=== PATIENT | male | born 1960 | race African-American/Black ===

== ENCOUNTER 2020-05-23 13:44 | Emergency (ER) | payer BC, OTHER ==
[2020-05-23 13:51] VITALS: BP 180/94
--- NOTE | 2020-05-23 13:57 | ER Document Report ---
ED Medical Screen (RME) - General Chief Complaint: Numbness Stated Complaint: RIGHT SIDED NUMBNESS Time Seen by Provider: 05/23/20 13:50 Mode of Arrival: Ambulatory Information source: Patient Notes: 59-year-old male presented to ED for a numbness in the right shoulder and arm. He states he has no loss of memory no change in orientation and mentation. He has no facial droop. He has no palmar drift. He has full range of motion to all arms and legs. He states he has never had anything like this before. He states the feeling is starting to come back to his arm and shoulder. He has fu ll front end architect. I have spoken with who stated he would need a full stroke protocol work-up and this has been ordered. He has been sent to CT. I have greeted and performed a rapid initial assessment of this patient. A comprehensive ED assessment and evaluation of the patient, analysis of test results and completion of medical decision making process will be conducted by an additional ED providers. TRAVEL OUTSIDE OF THE [place] IN LAST 30 DAYS: No - Related Data Allergies/Adverse Reactions: No Known Allergies Allergy (Verified 05/16/15 17:28) Past Medical History - Past Medical History Cardiac Medical History: Reports: Hx Hypercholesterolemia, Hx Hypertension Endocrine Medical History: Reports: Hx Diabetes Mellitus Type 1 Past Surgical History: Reports: Hx Orthopedic Surgery - left shoulder - Immunizations Hx Diphtheria, Pertussis, Tetanus Vaccination: Yes - 2010 Physical Exam - Vital signs Vitals: Temp Pulse Resp BP Pulse Ox 98.5 F 92 20 180/94 H 98 05/23/20 13:51 05/23/20 13:51 05/23/20 13:51 05/23/20 13:51 05/23/20 13:51 Course - Vital Signs Vital signs: Temp Pulse Resp BP Pulse Ox 98.5 F 92 20 180/94 H 98 05/23/20 13:51 05/23/20 13:51 05/23/20 13:51 05/23/20 13:51 05/23/20 13:51
--- NOTE | 2020-05-23 14:08 | ER Document Report ---
ED General - General Chief Complaint: Numbness Stated Complaint: RIGHT SIDED NUMBNESS Time Seen by Provider: 05/23/20 13:50 Primary Care Provider: SANDRA PALOMINO MD [Primary Care Provider] - Follow up as needed Mode of Arrival: Ambulatory Notes: 59-year-old male presents with right arm symptoms. He is a type II diabetic well-controlled actually had a primary care appointment 2 days ago and was told everything is fine in terms of his blood pressure cholesterol etc. Today at work he had an episode of right arm tingling and swelling he looked at his hand and it looked puffy and then he developed tingling that went up his arm to his shoulder. He then had some involuntary hand cramping on the right. Lasted 2 hours and is now gone. He did not have any weakness he had no face or arm symptoms language issues or any other symptoms. Yesterday before lunch she had a brief episode of feeling foggy and with visual changes did not check his blood sugar and that went away spontaneously and has not recurred since. He was seen at triage the triage provider asked me if she is to order a head CT and I told her yes. Apparently he was nearly activated as a code stroke, however on m y assessment this is not needed. TRAVEL OUTSIDE OF THE [place] IN LAST 30 DAYS: No - Related Data Allergies/Adverse Reactions: No Known Allergies Allergy (Verified 05/16/15 17:28) Past Medical History - General Information source: Patient - Social History Smoking Status: Never Smoker Family History: None - Past Medical History Cardiac Medical History: Reports: Hx Hypercholesterolemia, Hx Hypertension Endocrine Medical History: Reports: Hx Diabetes Mellitus Type 1 Past Surgical History: Reports: Hx Orthopedic Surgery - left shoulder - Immunizations Hx Diphtheria, Pertussis, Tetanus Vaccination: Yes - 2010 Review of Systems - Review of Systems Notes: REVIEW OF SYSTEMS GEN: Denies fever, chills, weight loss ENT: Denies sore throat, nasal discharge, ear pain EYES: Denies blurry vision, eye pain, discharge CV: Denies chest pain, palpitations, edema RESP: Denies cough, shortness of breath, wheezing GI: Denies abdominal pain, nausea, vomiting, diarrhea MSK: Denies joint pain/swelling, edema, SKIN: Denies rash, skin lesions LYMPH: Denies swollen glands/lymph nodes NEURO: Voluntary right hand contraction and numbness now resolved s PSYCH: Denies depression, suicidal or homicidal ideation PHYSICAL EXAMINATION General: No acute distress, well-nourished Head: Atraumatic, normocephalic ENT: Mouth normal, oropharynx moist, no exudates or tonsillar enlargement Eyes: Conjunctiva normal, pupils equal, lids normal Neck: No JVD, supple, no guarding CVS: Normal rate, regular rhythm, no murmurs Resp: No resp distress, equal and normal breath sounds bilaterally GI: Nondistended, soft, no tenderness to palpation, no rebound or guarding Ext: No deformities, no edema, normal range of motion in upper and lower ext Back: No CVA or midline TTP Skin: No rash, warm Lymphatic: No lymphadeopathy noted Neuro: Awake, alert. Face symmetric. GCS 15. Annual nerves II through XII are intact. 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 Normal sensation throughout both upper and lower extremity as well as the trunk. Normal reflexes. Speech is fluent, keenly awake and alert NIH stroke score 0. Physical Exam - Vital signs Vitals: Temp Pulse Resp BP Pulse Ox 98.5 F 92 20 180/94 H 98 05/23/20 13:51 05/23/20 13:51 05/23/20 13:51 05/23/20 13:51 05/23/20 13:51 Course - Re-evaluation Re-evalutation: 05/23/20 14:07 Resolved right upper extremity cramping and tingling, could be a result of electrolytes blood sugar radiculopathy but is unlikely to reflect stroke or TIA Neuro exam normal now Head CT was already done at triage and looks clean Seizure is also remote possibility but with no locus on CT this is less likely. Will check basic labs and do a ABCD 2 score in terms of TIA 05/23/20 14:45 ABCD 2 3 points Per the validation study, 0-3 points: Low Risk 2-Day Stroke Risk: 1.0% 7-Day Stroke Risk: 1.2% 05/23/20 16:27 Not think this was a true TIA and even if it is I spoke with the patient at length and he is recently had a normal carotid ultrasound saw his primary yesterday and I think he is at overall low risk for stroke Discharge home start/resume baby aspirin I have discussed with the patient there likely diagnosis, aftercare plan, follow-up plans and my usual and customary return precautions. They verbalized understanding of this. - Vital Signs Vital signs: Temp Pulse Resp BP Pulse Ox 98.5 F 92 20 180/94 H 98 05/23/20 13:51 05/23/20 14:37 05/23/20 14:37 05/23/20 14:37 05/23/20 14:42 - Laboratory Result Diagrams: 05/23/20 14:15 05/23/20 14:15 Laboratory results interpreted by me: 05/23/20 05/23/20 05/23/20 14:15 14:15 14:22 Seg Neutrophils % 40.9 L Carbon Dioxide 32 H Glucose 119 H POC Glucose 128 H - Diagnostic Test Radiology reviewed: Image reviewed, Reports reviewed - EKG Interpretation by Me EKG shows normal: Sinus rhythm Rate: Normal Rhythm: NSR - And was elevation no depression no T wave changes Discharge - Discharge Clinical Impression: Hand cramps Hypertension Qualifiers: Hypertension type: unspecified Qualified Code(s): I10 - Essential (primary) hypertension Condition: Stable Disposition: HOME, SELF-CARE Instructions: Transient Ischemic Attack ([facility]) Additional Instructions: As we discussed I do not think you had a mini stroke but I did provide instructions as if you did, to let you know when to return to the emergency ro om. Referrals: SANDRA PALOMINO MD [Primary Care Provider] - Follow up as needed
--- NOTE | 2020-05-23 14:12 | RADIOLOGY REPORT (SQ) ---
EXAM DESCRIPTION: CT HEAD WITHOUT IMAGES COMPLETED DATE/TIME: 05/23/2020 2:02 pm REASON FOR STUDY: Stroke alert COMPARISON: None. TECHNIQUE: Axial images acquired through the brain without intravenous contrast. Images reviewed wi th bone, brain and subdural windows. Additional sagittal and coronal reconstructions were generated. Images stored on PACS. All CT scanners at this facility use dose modulation, iterative reconstruction, and/or weight based d osing when appropriate to reduce radiation dose to as low as reasonably achievable (ALARA). [facility]: Dose Right [facility]: CareDose [facility]: Dose Right [facility]: Teradose 4D [facility]: Smart ShapeUp RADIATION DOSE: CT Rad equipment meets quality standard of care and radiation dose reduction techniq ues were employed. CTDIvol: 53.2 mGy. DLP: 1124 mGy-cm. mGy. LIMITATIONS: None. FINDINGS: VENTRICLES: Normal size and contour. CEREBRUM: No masses. No hemorrhage. No midline shift. No evidence for acute infarction. Normal gra y/white matter differentiation. No areas of low density in the white matter. CEREBELLUM: No masses. No hemorrhage. No alteration of density. No evidence for acute infarction. EXTRAAXIAL SPACES: No fluid collections. No masses. ORBITS AND GLOBE: No intra- or extraconal masses. Normal contour of globe without masses. CALVARIUM: No fracture. PARANASAL SINUSES: No fluid or mucosal thickening. SOFT TISSUES: No mass or hematoma. OTHER: No other significant finding. IMPRESSION: NORMAL BRAIN CT WITHOUT CONTRAST. EVIDENCE OF ACUTE STROKE: NO. COMMENT: Quality ID # [id number]: Final reports with documentation of one or more dose reduction techniques (e.g., Automated exposure control, adjustment of the mA and/or kV according to patient size, use of iterative reconstruction technique) TECHNICAL DOCUMENTATION: JOB ID: [id number] 2010 [employer]- All Rights Reserved Reading location - IP/workstation name: [email or web address]
--- NOTE | 2020-05-23 14:20 | RADIOLOGY REPORT (SQ) ---
EXAM DESCRIPTION: CHEST SINGLE VIEW IMAGES COMPLETED DATE/TIME: 05/23/2020 2:03 pm REASON FOR STUDY: Stroke alert COMPARISON: None. EXAM PARAMETERS: NUMBER OF VIEWS: One view. TECHNIQUE: Single frontal radiographic view of the chest acquired. RADIATION DOSE: NA LIMITATIONS: None. FINDINGS: LUNGS AND PLEURA: No opacities, masses or pneumothorax. No pleural effusion. MEDIASTINUM AND HILAR STRUCTURES: No masses. Contour normal. HEART AND VASCULAR STRUCTURES: Heart normal in size. Normal vasculature. BONES: No acute findings. HARDWARE: None in the chest. OTHER: No other significant finding. IMPRESSION: NO ACUTE RADIOGRAPHIC FINDING IN THE CHEST. TECHNICAL DOCUMENTATION: JOB ID: [id number] 2010 [employer]- All Rights Reserved Reading location - IP/workstation name: [email or web address]
[2020-05-23 14:30] LABS: ABSOLUTE BASOPHILS # (AUTO) 0.1 10^3/uL (0.0-0.2); ABSOLUTE EOSINOPHILS # (AUTO) 0.3 10^3/uL (0.0-0.6); ABSOLUTE MONOCYTES (AUTO) 0.9 10^3/uL (0.1-1.4); ABSOLUTE NEUT (AUTO) 2.9 10^3/uL (1.7-8.2); BASOPHILS % (AUTO) 0.8 % (0-2); EOSINOPHILS % (AUTO) 4.5 % (0-6); HEMATOCRIT 40.9 % (37.9-51.0); LYMPHOCYTES % (AUTO) 41.7 % (13-45); MEAN CORPUSCULAR HGB CONC 34.1 g/dL (32.0-36.0); MEAN CORPUSCULAR VOLUME 94 fl (80-97); MONOCYTES % (AUTO) 12.1 % (3-13); PLATELET COUNT 187 10^3/uL (150-450); RED BLOOD COUNT 4.36 10^6/uL (4.35-5.55); SEGMENTED NEUTROPHILS % (AUTO) 40.9 % (42-78); TOTAL CELLS COUNTED % (AUTO) 100 %; WHITE BLOOD COUNT 7.1 10^3/uL (4.0-10.5)
[2020-05-23 14:31] LABS: PROTHROMBIN TIME 12.4 SEC (11.4-15.4)
[2020-05-23 14:32] LABS: PARTIAL THROMBOPLASTIN TIME 23.7 SEC (23.5-35.8)
[2020-05-23 14:44] LABS: ALBUMIN 4.2 g/dL (3.5-5.0); ALKALINE PHOSPHATASE 65 U/L (38-126); ANION GAP 9 (5-19); ASPARTATE AMINO TRANSFERASE 30 U/L (17-59); BILIRUBIN,DIRECT 0.1 mg/dL (0.0-0.4); BILIRUBIN,TOTAL 0.6 mg/dL (0.2-1.3); BLOOD UREA NITROGEN 15 mg/dL (7-20); CALCIUM 9.8 mg/dL (8.4-10.2); CARBON DIOXIDE 32 mmol/L (22-30); CHLORIDE 101 mmol/L (98-107); CREATINE KINASE 152 U/L (55-170); GLUCOSE 119 mg/dL (75-110); POTASSIUM 4.4 mmol/L (3.6-5.0); TOTAL PROTEIN 7.9 g/dL (6.3-8.2)
[2020-05-23] MEDS ORDERED: ACETAMINOPHEN 325 MG TABLET PO ONE (14:44)
[2020-05-23 14:56] LABS: CREATINE KINASE MB 2.83 ng/mL (<4.55)
[2020-05-23 14:58] LABS: TROPONIN I < 0.012 ng/mL
--- NOTE | 2020-05-23 18:25 | EKG REPORT ---
SEVERITY:- NORMAL ECG - SINUS RHYTHM : Confirmed by: Ajit Hawk MD 23-May-2020 18:24:12
== END 2020-05-23 15:37 | disposition home or self-care (01) ==
LOC: ER 13:44
DX: R25.2 Cramp and spasm (principal); R20.2 Paresthesia of skin; H53.9 Unspecified visual disturbance; I10 Essential (primary) hypertension; E11.9 Type 2 diabetes mellitus without complications
CPT/HCPCS: 36415; 70450; 71045; 80053; 82550; 82553; 82962; 84484; 85025; 85610; 85730; 93005; 93010; 99285